=== PATIENT | female | born 2000 | race Caucasian/White ===

== ENCOUNTER 2018-09-27 13:03 | Inpatient (IN) ==
[2018-09-27] MEDS ORDERED: Metoclopramide 10 MG/2 ML VIAL IVP PRN (13:29)
[2018-09-27] MEDS ORDERED: Famotidine 20 MG/2 ML VIAL IVP PRN (13:29)
[2018-09-27] MEDS ORDERED: Lidocaine 1% 20 ML MDV INFILT PRN (13:29)
[2018-09-27] MEDS ORDERED: Naloxone 0.4 MG/ML INJ IVP PRN (13:29)
[2018-09-27] MEDS ORDERED: Ringers Solution, Lactated 1,000 ML IVC SCH (13:30)
--- NOTE | 2018-09-27 13:38 | OB/GYN History & Physical ---
Date of Encounter: 09/27/18 Time of Encounter: 13:37 Assessment and Plan (1) 40 weeks gestation of Current visit: Yes Status: Acute (2) Non-reactive NST (non-stress test) Current visit: Yes Status: Acute Admit to labor and delivery Nubain and epidural as desired Cervical Keith placed at 1500 without incident Pitocin started per policy Anticipate POC discussed with Dr. Rainey (3) Depression affecting in third trimester, antepartum Current visit: Yes Status: Acute Remains on zoloft, panic attacks improved per pt (4) Maternal care for tachycardia during Current visit: Yes Status: Acute Currently resolved, has seen [facility]ology and [facility] at [facility], [facility] physician notes reviewed and patient has been cleared for delivery at [facility] History of Present Illness Chief complaint: Non reactive NST HPI: Ms. Boles is a 18 year old female 40+0 weeks gestation presents to triage after having a nonreactive NST in the office. Reports good movement, denies vaginal bleeding or leaking of fluid. care with nurse midwives. course complicated by tachycardia, seen by cardiology at [facility] and [facility] community living coach program, cleared for delivery at [facility], depression started on Zoloft, and heartburn. Per pt she was told by both [place] [facility] and DAY CARE TEACHER and states both cleared her for delivery at [facility]. Labs: O+, Rubella immune, varicella nonimmune, GBS negative, all other serologies negative Past Med Surg Social Fam HX - Past Medical History Medical history: no medical history Psychiatric history: no psych history - Social History Smoking Status: Never smoker Alcohol use: none Drug use: none - Family History Mother Living Status: Still Living Hx Family Cardiac Disorders: No Hx Family Respiratory Disorders: No Hx Family Cancer: No Hx Family GI Disorders: No Hx Family Genitourinary Disorders: No Hx Family Endocrine Disorder: No Hx Family Musculoskeletal Disorders: No Hx Family Neuromuscular Disorders: No Hx Family Neurologic Disorders: No Hx Family HEENT Disorders: No Hx Family Autoimmune Disorders: No Hx Family Reproductive Disorders: No Hx Family Psychosocial Disorders: No Hx Family Medical Disorders: No Obstetrical History - Pregnancies : 1 Para: 0 Term: 0 : 0 Ab's: 0 Livin Medications and Allergies Ondansetron ODT [Zofran ODT] 4 mg SL Q8HR #21 tab.rapdis 02/26/18 [Rx] cephALEXin [Keflex] 500 mg PO TID #21 capsule 02/26/18 [Rx] Vit #108/Iron/FA [ One Tablet] 1 each PO DAILY 09/27/18 [History] Sertraline [Zoloft] 50 mg PO DAILY 09/27/18 [History] Allergy/AdvReac Type Severity Reaction Status Date / Time mupirocin [From Bactroban] Allergy Rash Verified 03/12/18 23:17 Exam - Constitutional Constitutional: well developed, well nourished, no acute distress, average body habitus - Neck Neck exam: full ROM - Lungs Respiratory exam: CTAB - Cardiovascular Cardiovascular exam: RRR - Abdomen Abdomen: Present: gravid, non tender - Extremities Extremities exam: normal capillary refill, normal inspection - Cervix Dilation: 1 Effacement: 75 Station: -2 Results Result Diagrams: 09/27/18 13:17 All other labs normal. - VTE Reasons for not Prescribing Prophylaxis: Treatment not Indicated - Low risk for VTE
[2018-09-27 13:55] LABS: Basophils # 0.1 K/mcL (0.0-0.2); Basophils % 0.5 %; Eosinophils # 0.1 K/mcL (0.0-0.6); Eosinophils % 0.8 %; Hematocrit 33.6 % (35.3-44.9); Hemoglobin 10.8 g/dL (11.5-15.4); Immature Granulocytes % 1.7 % (0-4); Lymphocytes # 2.1 K/mcL (0.6-4.6); Lymphocytes % 16.2 %; Mean Corpuscular HGB Conc 32.1 g/dL (31.6-35.5); Mean Corpuscular Hemoglobin 26.5 pg (28.0-33.3); Mean Corpuscular Volume 82.4 fL (83.0-100.0); Mean Platelet Volume 11.1 fL (9.4-12.4); Monocytes % 7.6 %; Neutrophils # 9.3 K/mcL (1.6-8.9); Platelet Count 295 K/mcL (140-400); Red Blood Count 4.08 M/mcL (3.82-4.97); Red Cell Distribution Width 13.2 % (11.5-14.5); Segmented Neutrophils % 73.2 %; White Blood Count 12.7 K/mcL (4.3-11.1)
[2018-09-27 14:17] LABS: Amphetamine Screen,Urine Negative ng/mL (Cutoff=1000); Barbiturate Screen,Urine Negative ng/mL (Cutoff=200); Benzodiazepines Screen,Urine Negative ng/mL (Cutoff=200); Cannabinoid Screen,Urine Negative ng/mL (Cutoff = 50); Cocaine Screen,Urine Negative ng/mL (Cutoff= 300); Opiate Screen,Urine Negative ng/mL (Cutoff=300); Phencyclidine Screen,Urine Negative ng/mL (Cutoff=25)
[2018-09-27] MEDS ORDERED: Oxytocin 20 units/ LR 1000 mL 20 UNIT/1,000 ML BAG IVC SCH (14:30)
--- NOTE | 2018-09-27 14:57 | OB/GYN Progress Note ---
Date of Encounter: 09/27/18 Objective - Labs Labs: Abnormal lab results WBC 12.7 K/mcL (4.3-11.1) H 09/27/18 13:17 Hgb 10.8 g/dL (11.5-15.4) L 09/27/18 13:17 Hct 33.6 % (35.3-44.9) L 09/27/18 13:17 MCV 82.4 fL (83.0-100.0) L 09/27/18 13:17 MCH 26.5 pg (28.0-33.3) L 09/27/18 13:17 9.3 K/mcL (1.6-8.9) H 09/27/18 13:17
[2018-09-27] MEDS ORDERED: *HR* Nalbuphine 10 MG/ML AMPUL IV PRN (16:16)
--- NOTE | 2018-09-27 16:21 | OB Labor Progress Note ---
Date of Encounter: 09/27/18 Time of Encounter: 16:18 Labor Progress Note - Subjective Subjective: Pt requests something for pain. She is not sure if she wants an epidural yet. Nl FM. No LOF. Ctxs are getting closer together. - Vital Signs Vital Signs: VSS - Cervix Cervix: otero bulb in place - Heart Tones Heart Tones: FHTs 135/mod variability/+A,-D toco q2-3min w/ Pit 4 - Interventions Interventions: giving Nubain 10mg x1 IV - Plan Plan: 18yo G1 at 40 0/7 wks for IOL due to decels noted in the office w/ NST today. Cont Otero bulb and Pitocin. Category 1 tracing. CEFM/toco. Plan for AROM when able. Anticipate .
[2018-09-27] MEDS: *HR* Nalbuphine 10 MG/ML AMPUL IVP PRN ×2 (16:33→20:44)
--- NOTE | 2018-09-27 18:06 | OB Labor Progress Note ---
Date of Encounter: 09/27/18 Time of Encounter: 18:05 Labor Progress Note - Subjective Subjective: Nubain really helped the pain. - Vital Signs Vital Signs: VSS - Cervix Cervix: 3-4 cm/100%/-2 station, balloon still in place w/ tug on catheter - Heart Tones Heart Tones: 135/mod variability/-A,-D - [place]: q2-3min - Interventions Interventions: Attempted to remove otero but it is not ready to deliver. - Plan Plan: Plan to recheck in one hour if it hasn't fallen out yet.
[2018-09-27] MEDS: Ondansetron 4 MG/2 ML VIAL IVP PRN (19:17)
--- NOTE | 2018-09-27 20:02 | OB Labor Progress Note ---
Date of Encounter: 09/27/18 Time of Encounter: 19:52 Labor Progress Note - Subjective Subjective: She is considering another dose of Nubain but not yet. Still tolerating the contractions. Per her nurse, the otero balloon fell out around 7pm. - Vital Signs Vital Signs: Normotensive, normal HR - Cervix Cervix: 5/70/-1 AROM light mec - Heart Tones Heart Tones: 135/mod variability/+A,single variable decel - [place]: q2-3min - Interventions Interventions: Cont Pitocin, currently at 12. CEFM/[place]. - Plan Plan: Continue present management.
--- NOTE | 2018-09-27 21:56 | OB Labor Progress Note ---
Date of Encounter: 09/27/18 Time of Encounter: 21:54 Labor Progress Note - Subjective Subjective: Pt is focused on her breathing with every contraction. - Vital Signs Vital Signs: Normotensive, normal HR - Cervix Cervix: 6/80/-1 - Heart Tones Heart Tones: 125/mod variability/+A,-D - [place]: q1 1/2-2min with Pit 16 - Interventions Interventions: Decreased Pit to 14 due to tachysystole - Plan Plan: CEFM/toco. Cont Pit at 14.
[2018-09-27] MEDS ORDERED: *HR* FentaNYL (PF) 100 MCG/2 ML VIAL ONE (22:21)
[2018-09-27] MEDS ORDERED: Ropivacaine/PF 0.2% 20 ML VIAL ONE (22:22)
[2018-09-27] MEDS ORDERED: EPHEDrine 50 MG/ML VIAL ONE (22:40)
[2018-09-27] MEDS ORDERED: Epidural Premix (fent/bupiv) 110 ML EP ONE (22:44)
--- NOTE | 2018-09-27 22:53 | Anesthesia Evaluation PreOp ---
Date of Encounter: 09/27/18 Time of Encounter: 22:51 - Past History Planned Operation: clara Cardiac History: Other (Sinus Tachycardia) Pulmonary History: Denies Any Significant HX DRAMATIC COACH History: Denies Any Significant HX Other Medical History: GERD Anesthesia History: No Prior Anesthetic Complications, Past Anesthesia : Yes (40 wks, ) Alcohol Use: none Drug use: none Medications and Allergies Ondansetron ODT [Zofran ODT] 4 mg SL Q8HR #21 tab.rapdis 02/26/18 [Rx] cephALEXin [Keflex] 500 mg PO TID #21 capsule 02/26/18 [Rx] Vit #108/Iron/FA [ One Tablet] 1 each PO DAILY 09/27/18 [History] Sertraline [Zoloft] 50 mg PO DAILY 09/27/18 [History] Allergy/AdvReac Type Severity Reaction Status Date / Time mupirocin [From Bactroban] Allergy Rash Verified 03/12/18 23:17 - Meds/Allergy Pre-op Review Medications Reviewed: Yes Allergies Reviewed: Yes Beta Blockers on Current Med List: No Anesthesia Results - Labs 09/27/18 13:17 Anesthesia Exam O2 Sat Height 1.7 m Weight 100.244 kg Height: 67 Weight: 100 - HEENT Mallampati: II Teeth: Normal Oral Opening: Greater than 3 - DRAMATIC COACH LOC: Oriented DRAMATIC COACH Motor: Normal RUE, Normal LUE, Normal RLE, Normal LLE, Normal Face DRAMATIC COACH Sensory: Normal: RUE, LUE, RLE, LLE, Face - Cardiac Rhythm: Regular Murmur: None JVD: No Carotid Bruit: No - Pulmonary Breath Sounds: bilateral Clear Respiratory Effort: Symmetrical Anesthesia Assess/Plan ASA Score: 2 Level of consciousness: Cooperative Anesthetic Plan: Epidural
[2018-09-27] MEDS ORDERED: EPHEDrine 50 MG/ML VIAL IVP PRN (22:56)
[2018-09-27] MEDS ORDERED: *HR* FentaNYL (PF) 100 MCG/2 ML VIAL EP ONE (22:56)
[2018-09-27] MEDS ORDERED: Ropivacaine/PF 0.2% 20 ML VIAL EP ONE (22:56)
--- NOTE | 2018-09-27 22:56 | Anesthesia Procedures ---
Date of Encounter: 09/27/18 Time of Encounter: 22:15 Procedures: Anesthesia - Epidural/Spinal Patient ID/Chart reviewed: Yes Patient examined: Yes OB Eval: Gestational age: 40 OB Eval: : 1 OB Eval: Hx Para: 0 OB Eval: Contractions: Non-stressed pattern Consent Obtained: Yes Supplemental Oxygen: None/Room Air Site Prep: Aseptic Technique Patient position: upright Local Anesthetic: Lidocaine 1% Amount of Local Anesthetic used: 3 Touhy Needle Gauge: 18 Touhy Needle Depth (cm): 7 Catheter Depth at Skin (cm): 14 Test Dose (1.5% Lido + Epi): Volume given (mls): 3 Test Dose Result: Negative Loading Dose: Fentanyl (mcg): 100 Loading Dose: Other: 6cc 0.2% ropivicaine Loading Dose Administered: Thru Touhy Needle Infusion Med: 0.125% Bupivacaine w/ 2 mcg/ml Fentanyl Infusion Rate (mls/hr): [address]: Tegaderm Interspace Used: L5-S1 Loss of Resistance (VALORIE): Yes Blood: No CSF: No Paresthesia: No Procedure: Strict asepsis, one attempt, no redirections. Good VALORIE at 7cm, catheter to 14cm. FHR unchanged
[2018-09-27] MEDS ORDERED: Epidural Premix (fent/bupiv) 110 ML EP SCH (23:00)
--- NOTE | 2018-09-27 23:06 | OB Labor Progress Note ---
Date of Encounter: 09/27/18 Time of Encounter: 23:04 Labor Progress Note - Subjective Subjective: Pt feels much relief from epidural. - Vital Signs Vital Signs: Normotensive - Cervix Cervix: 8/90/-1 - Heart Tones Heart Tones: 130/mod variability/-A,early decels - [place]: q2-3 min - Interventions Interventions: Continue present management. - Plan Plan: Recheck in 2 hrs or w/ strong urge to push. CEFM/[place]. Cont Pit.
--- NOTE | 2018-09-28 06:06 | OB/GYN Procedure Note ---
Delivery - Delivery Date: 09/28/18 Provider: Tanya Rainey (preceptor Alejandro Juan) Intrapartum events: meconium Delivery induction: AROM, oxytocin, otero Delivery augmentation: pitocin Delivery monitor: external FHT, external uterine Anesthesia: epidural Quantitated Blood Loss: 499 (EBL) - Infant (s) Infant A Infant Delivery Date: 09/28/18 Delivery Time: 05:20 Presentation: vertex Position: OA Route of delivery: Gender: Female Viability: Viable Pounds: 8 Ounces: 2 Weight Gram: 3.685 kg at 1 minute: 9 at 5 mins: 9 Shoulder Dystocia: not encountered Specimens collected: cord blood Placenta: spontaneous Cord: nuchal cord, 3 umbilical vessels, nuchal reduced - Repair Episiotomy: none Laceration Description: Perineal - 2nd Degree, Labial - Complications Delivery complications: none Delivery comments: 18yo G1 induced at 40 1/7 wks due to NR NST in the office yesterday at her routine visit. She had a otero balloon placed and was started on Pitocin. When the otero fell out, she was ruptured for light meconium stained fluid. She progressed overnight and became complete at 4:45 am. She pushed well for 35 minutes in direct OA position and delivered a viable female . The infant was dried and was found to be vigorous and crying. The was placed on the mother's abdomen and we waited to clamp and cut the cord at least 3 minutes. There was a gush of blood from the placenta which was ready to deliver. The cord was clamped and cut. The placenta delivered intact and the Pitocin was started. A second degree tear was repaired and a small left labial tear was repaired. The lochia was appropriate after the repair and the fundus was firm. The patient plans to breastfeed. - Disposition Mom disposition: stable in LDR Pender disposition: stable in LDR
[2018-09-28] MEDS: Ondansetron 4 MG/2 ML VIAL IVP PRN (06:20)
[2018-09-28] MEDS ORDERED: Sennosides 8.6 MG TABLET PO PRN (08:42)
[2018-09-28] MEDS ORDERED: Oxytocin 20 units/ LR 1000 mL 20 UNIT/1,000 ML BAG IVC SCH (08:42)
[2018-09-28] MEDS ORDERED: Acetaminophen 325 MG TABLET PO PRN (08:42)
[2018-09-28] MEDS ORDERED: Benzocaine/Menthol 56 GM AEROSOL SPRAY TP PRN (08:42)
[2018-09-28] MEDS ORDERED: Prenatal Vit/FA 1 EACH TABLET PO SCH (09:00)
[2018-09-28] MEDS: Lanolin 7 G OINT...G. TP PRN ×2 (13:06→21:16)
[2018-09-28] MEDS: Ibuprofen 600 MG TABLET PO PRN ×2 (13:07→21:16)
[2018-09-28] MEDS: *HR* HYDROcodone/Acet 5/325 mg TABLET PO PRN (16:54)
[2018-09-29 06:53] LABS: Basophils % 0.3 %; Eosinophils # 0.1 K/mcL (0.0-0.6); Hematocrit 21.7 % (35.3-44.9); Immature Granulocytes % 1.2 % (0-4); Lymphocytes # 2.7 K/mcL (0.6-4.6); Lymphocytes % 19.8 %; Mean Corpuscular HGB Conc 31.8 g/dL (31.6-35.5); Mean Corpuscular Volume 84.8 fL (83.0-100.0); Mean Platelet Volume 11.1 fL (9.4-12.4); Monocytes # 1.2 K/mcL (0.0-1.3); Monocytes % 8.5 %; Neutrophils # 9.5 K/mcL (1.6-8.9); Platelet Count 211 K/mcL (140-400); Red Blood Count 2.56 M/mcL (3.82-4.97); Red Cell Distribution Width 13.5 % (11.5-14.5); Segmented Neutrophils % 69.2 %; White Blood Count 13.7 K/mcL (4.3-11.1)
[2018-09-29 07:10] LABS: Hemoglobin 6.9 g/dL (11.5-15.4)
[2018-09-29] MEDS: Ibuprofen 600 MG TABLET PO PRN ×2 (08:07→15:28)
--- NOTE | 2018-09-29 08:31 | OB/GYN Progress Note ---
Date of Encounter: 09/29/18 Time of Encounter: 08:29 - Assessment and Plan (1) Vaginal delivery Current Visit: Yes Status: Acute Pt meeting all milestones. Anticipate discharge home this evening or in the morning. (2) Anemia associated with acute blood loss Current Visit: Yes Status: Acute Hgb 6.9 this am. Risks and benefits of blood transfusion discussed. Pt declines at this time but will see how she feels as the day goes on. Repeat H&H this afternoon. (3) Depression affecting in third trimester, antepartum Current Visit: Yes Status: Acute Continue medications. Subjective - Subjective Interval history: Pt reports some general soreness and pressure in her perineal area. She reports she had some lightheadedness yesterday but not so far this am. Patient reports: appetite normal, voiding normally, pain well controlled, ambulating normally : doing well Objective - Latest Vital Signs Latest vital signs: Vital Signs Temp Pulse Pulse Resp BP Pulse Ox 09/29/18 04:40 97.7 F 84 14 100/56 100 09/28/18 20:50 98.1 F 94 16 91/41 99 09/28/18 17:00 98.6 F 101 101 16 101/63 09/28/18 16:55 98.6 F 120 16 86/58 09/28/18 10:36 98.3 F 97 18 106/60 09/28/18 09:30 97.9 F 93 16 98/55 98 09/28/18 08:42 16 09/28/18 08:30 98.2 F 87 18 107/56 98 Intake and Output 09/28/18 09/29/18 09/29/18 23:59 07:59 15:59 Intake Total 600 / 1160 Output Total 800 / 1600 Balance -200 / -440 Intake: Oral 600 / 1160 Output: Urine 800 / 1600 - Exam Lungs: bilateral: normal Chest: Normal S1, Normal S2 Extremities: Present: normal Abdomen: Present: soft Uterus: Present: firm Uterus Position: 2 Fingers Below Umbilicus - Labs Labs: Laboratory Results - last 24 hr 09/29/18 06:33 WBC 13.7 H RBC 2.56 L Hgb 6.9 L D Hct 21.7 L MCV 84.8 MCH 27.0 L MCHC 31.8 RDW 13.5 Plt Count 211 MPV 11.1 Immature Gran % 1.2 Seg Neutrophils % 69.2 Lymphocytes % 19.8 Monocytes % 8.5 Eosinophils % 1.0 Basophils % 0.3 Neutrophils # 9.5 H Lymphocytes # 2.7 Monocytes # 1.2 Eosinophils # 0.1 Basophils # 0.0
[2018-09-29] MEDS: *HR* HYDROcodone/Acet 5/325 mg TABLET PO PRN (10:54)
[2018-09-29] MEDS ORDERED: 0.9 % Sodium Chloride 1,000 ML ONE (13:36)
[2018-09-29 16:16] VITALS: BP 116/73
--- NOTE | 2018-09-29 16:19 | Discharge Summary ---
Date of Encounter: 09/29/18 Time of Encounter: 16:15 - Discharge Diagnosis (1) Vaginal delivery Priority: Primary Status: Acute Comments: Pt meeting all milestones. She denies any lightheadedness after transfusion. She is voiding freely, tolerating regular diet, lochia light. She reports good mood. (2) Anemia associated with acute blood loss Priority: Secondary Status: Acute Comments: Pt reports feeling much better s/p transfusion of 1 unit PRBC's. She is requesting discharge home (3) Depression affecting in third trimester, antepartum Priority: Secondary Status: Acute - Discharge Medications Prescriptions: New Ferrous Sulfate 325 mg PO BID #60 tablet Ibuprofen [Motrin] 600 mg PO Q6HR PRN #30 tablet PRN Reason: Cramping Benzocaine/Menthol Hoffman [Dermoplast Hoffman] 1 appl TP QID PRN aerosol PRN Reason: See Comments Docusate [Colace] 100 mg PO BID #60 capsule Lanolin [Lansinoh] 1 appl TP QID PRN oint...g. PRN Reason: Continued Sertraline [Zoloft] 50 mg PO DAILY Vit #108/Iron/FA [ One Tablet] 1 each PO DAILY Discontinued Ondansetron ODT [Zofran ODT] 4 mg SL Q8HR #21 tab.rapdis cephALEXin [Keflex] 500 mg PO TID #21 capsule Home Medications: Vit #108/Iron/FA [ One Tablet] 1 each PO DAILY 09/27/18 [History] Sertraline [Zoloft] 50 mg PO DAILY 09/27/18 [History] Benzocaine/Menthol Hoffman [Dermoplast Hoffman] 1 appl TP QID PRN aerosol 09/29/18 [Rx] Docusate [Colace] 100 mg PO BID #60 capsule 09/29/18 [Rx] Ferrous Sulfate 325 mg PO BID #60 tablet 09/29/18 [Rx] Ibuprofen [Motrin] 600 mg PO Q6HR PRN #30 tablet 09/29/18 [Rx] Lanolin [Lansinoh] 1 appl TP QID PRN oint...g. 09/29/18 [Rx] Allergies/Adverse Reactions: Allergy/AdvReac Type Severity Reaction Status Date / Time mupirocin [From Bactroban] Allergy Rash Verified 03/12/18 23:17 Data Procedures and tests throughout hospitalization: Laboratory Tests 09/27/18 09/27/18 09/27/18 13:17 13:17 13:17 WBC 12.7 H RBC 4.08 Hgb 10.8 L Hct 33.6 L MCV 82.4 L MCH 26.5 L MCHC 32.1 RDW 13.2 Plt Count 295 MPV 11.1 Immature Gran % 1.7 Seg Neutrophils % 73.2 Lymphocytes % 16.2 Monocytes % 7.6 Eosinophils % 0.8 Basophils % 0.5 Neutrophils # 9.3 H Lymphocytes # 2.1 Monocytes # 1.0 Eosinophils # 0.1 Basophils # 0.1 Urine Opiates Screen Negative Ur Buprenorphine Scrn Negative Ur Barbiturates Screen Negative Ur Phencyclidine Scrn Negative Ur Amphetamines Screen Negative U Benzodiazepines Scrn Negative Urine Cocaine Screen Negative U Marijuana (THC) Screen Negative Ur Drug Screen Interp See Below Blood Type O POSITIVE Antibody Screen NEGATIVE Crossmatch See Detail 09/29/18 06:33 WBC 13.7 H RBC 2.56 L Hgb 6.9 L D Hct 21.7 L MCV 84.8 MCH 27.0 L MCHC 31.8 RDW 13.5 Plt Count 211 MPV 11.1 Immature Gran % 1.2 Seg Neutrophils % 69.2 Lymphocytes % 19.8 Monocytes % 8.5 Eosinophils % 1.0 Basophils % 0.3 Neutrophils # 9.5 H Lymphocytes # 2.7 Monocytes # 1.2 Eosinophils # 0.1 Basophils # 0.0 Urine Opiates Screen Ur Buprenorphine Scrn Ur Barbiturates Screen Ur Phencyclidine Scrn Ur Amphetamines Screen U Benzodiazepines Scrn Urine Cocaine Screen U Marijuana (THC) Screen Ur Drug Screen Interp Blood Type Antibody Screen Crossmatch Labs on day of discharge: Labs from last 24 hours 09/29/18 09/27/18 06:33 13:17 WBC 13.7 H RBC 2.56 L Hgb 6.9 L D Hct 21.7 L MCV 84.8 MCH 27.0 L MCHC 31.8 RDW 13.5 Plt Count 211 MPV 11.1 Immature Gran % 1.2 Seg Neutrophils % 69.2 Lymphocytes % 19.8 Monocytes % 8.5 Eosinophils % 1.0 Basophils % 0.3 Neutrophils # 9.5 H Lymphocytes # 2.7 Monocytes # 1.2 Eosinophils # 0.1 Basophils # 0.0 Blood Type O POSITIVE Antibody Screen NEGATIVE Crossmatch See Detail Date of admission: 09/27/18 13:03 Primary care physician: Maddison Farley CNP Consults: 09/28/18 08:42 Consult to Truck Operator [CONS] Routine Comment: Vaginal delivery, consult needed Discharging clinician: Alesia Sandoval Anticipated date of discharge: 09/29/18 - Patient Status Disposition: Home, Self-Care Condition: Good Functional capacity at discharge: independent ambulation Overall status at discharge: patient is progressing back to baseline - Discharge Instructions Follow Up With: Maddison Farley CNP [Primary Care Provider] - Tanya Rainey [Partnered Physician] - Hospital Course Reason for admission: induction of labor Delivery: Episiotomy: none Laceration: 2nd degree Other procedures: none complications: none Discharge diagnosis: IUP at term delivered [place] baby: female Hospital course: Delivery Date: 09/28/18 Provider: Tanya Rainey (preceptor Alejandro Juan) Intrapartum events: meconium Delivery induction: AROM, oxytocin, otero Delivery augmentation: pitocin Delivery monitor: external FHT, external uterine Anesthesia: epidural Quantitated Blood Loss: 499 (EBL) - (s) Infant A Delivery Date: 09/28/18 Delivery Time: 05:20 Presentation: vertex Position: OA Route of delivery: Gender: Female Viability: Viable Pounds: 8 Ounces: 2 Weight Gram: 3.685 kg at 1 minute: 9 at 5 mins: 9 Shoulder Dystocia: not encountered Specimens collected: cord blood Placenta: spontaneous Cord: nuchal cord, 3 umbilical vessels, nuchal reduced - Repair Episiotomy: none Laceration Description: Perineal - 2nd Degree, Labial - Complications Delivery complications: none - Disposition Mom disposition: home PPD1 [place] disposition: home with mother, bottle feeding Time Attestation: Total time spent providing and/or coordinating discharge services: Time Spent: Less than 30 minutes Exam - Constitutional Vitals: Temp Pulse Resp BP Pulse Ox 98.4 F 92 14 114/50 99 09/29/18 13:49 09/29/18 13:49 09/29/18 13:49 09/29/18 13:49 09/29/18 13:49 Exam: See am assessment
[2018-09-29 16:57] LABS: Hemoglobin 8.2 g/dL (11.5-15.4)
== END 2018-09-29 18:18 | disposition home or self-care (01) | DRG 560 ==
LOC: 1NENULAB → OBSVTOIN 13:03 → 1NENUOBS 09-28 08:33
PROVIDERS: ADMIT Advanced Practice Midwife; ATTEND Advanced Practice Midwife